=== PATIENT | male | born 1945 ===

== ENCOUNTER 2018-02-22 11:16 | Emergency (ER) | payer OTHER ==
[~2018-02-22] VITALS: Ht 162.6 cm; Wt 76.2 kg
[2018-02-22] MEDS ORDERED: LIPITOR40 MG (11:20)
[2018-02-22] MEDS ORDERED: METFORMIN HCL500 MG (11:20)
[2018-02-22] MEDS ORDERED: LEVAQUIN500 MG PO (13:02)
== END 2018-02-22 12:54 | disposition home or self-care (01) ==
LOC: ER 11:16
DX: B34.9 Viral infection, unspecified (principal); J11.1 Influenza due to unidentified influenza virus with other respiratory manifestations